=== PATIENT | female | born 1975 | race Caucasian/White ===

== ENCOUNTER 2022-04-11 22:58 | Emergency (ER) | payer SELFPAY ==
[~2022-04-11] VITALS: Ht 144.8 cm; Wt 49.9 kg
--- NOTE | 2022-04-11 23:01 | NUR ---
PT W/C ASSISTED TO BED #7
[2022-04-11 23:07] VITALS: BP 96/48
[2022-04-12 01:11] VITALS: BP 96/48
--- NOTE | 2022-04-12 01:12 | NUR ---
Patient discharged with v/s stable. Written and verbal after care instructions given and explained. Patient verbalized understanding. Ambulatory with steady gait. All questions addressed prior to discharge. Advised to follow up with PMD.
== END 2022-04-12 01:12 | disposition home or self-care (01) ==
LOC: MED 22:58
DX: F10.129 Alcohol abuse with intoxication, unspecified (principal); Y90.9 Presence of alcohol in blood, level not specified
CPT/HCPCS: 99281